=== PATIENT | male | born 1995 | race Hispanic/Latino ===

== ENCOUNTER 2018-03-03 20:23 | Emergency (ER) | payer OTHER ==
[2018-03-03 20:36] VITALS: BP 126/83; PULSE 88; RESP 20; TEMP 99; O2SAT 100
--- NOTE | 2018-03-03 20:44 | ED PDOC ---
HPI: General Adult Time Seen by Provider: 03/03/18 20:34 Chief Complaint (Nursing): Med Refill Chief Complaint (Provider): Med Refill History Per: Patient History/Exam Limitations: no limitations Additional Complaint(s): 22 y/o male presents to the ED for a medication refill. Patient states he is currently on Effexor and took his last dose today. Patient takes one tablet of 75 mg Effexor daily. Patient was unable to make appointment with physician for medication refill this past week. Patient states he is hoping to get an appointment sometime this weekend. Denies suicidal or homicidal ideation at this time. PMD: None Past Medical History Reviewed: Historical Data, Nursing Documentation, Vital Signs Vital Signs: Last Vital Signs Temp 99.0 F 03/03/18 20:34 Pulse 88 03/03/18 20:34 Resp 20 03/03/18 20:34 BP 126/83 03/03/18 20:34 Pulse Ox 100 03/03/18 20:49 - Medical History PMH: Anxiety - Surgical History Surgical History: No Surg Hx - Family History Family History: States: No Known Family Hx - Living Arrangements Living Arrangements: With Family - Social History Current smoker - smoking cessation education provided: No Ex-Smoker (has not smoked in the last 12 months): Yes (quit smoking in June of 2017) Alcohol: Occasional Drugs: Denies, Other (Quit smoking marijuana in October) - Home Medications Home Medications: Ambulatory Orders Medication Instructions Recorded Venlafaxine [Effexor-XR] 75 mg PO DAILY #20 tab 03/03/18 - Allergies Allergies/Adverse Reactions: Allergies Allergy/AdvReac Type Severity Reaction Status Date / Time No Known Allergies Allergy Verified 03/03/18 20:34 Review of Systems ROS Statement: Except As Marked, All Systems Reviewed And Found Negative Psych: Positive for: Anxiety (need refill for effexor), Other (denies suicidal or homicidal ideation) Physical Exam - Reviewed Nursing Documentation Reviewed: Yes Vital Signs Reviewed: Yes - Physical Exam Appears: Positive for: Well, Non-toxic, No Acute Distress Head Exam: Positive for: ATRAUMATIC, NORMOCEPHALIC Skin: Positive for: Normal Color. Negative for: Rash Eye Exam: Positive for: Normal appearance, EOMI, PERRL Extremity: Positive for: Normal ROM. Negative for: Deformity Neurologic/Psych: Positive for: Alert, Oriented (x3). Negative for: Motor/ Sensory Deficits - ECG O2 Sat by Pulse Oximetry: 100 (RA) Pulse Ox Interpretation: Normal Medical Decision Making Medical Decision Making: Time: 2045 Impression: 22 y/o male presents to the ED for medication refill Plan: -- Patient will be discharge with 20 day supply of 75 mg Effexor PO daily. Advised PMD follow up SANDEEP. Scribe Attestation: Documented by Alyson Adkins, acting as a scribe for Jinny Pitts PA-C. Provider Scribe Attestation: All medical record entries made by the Scribe were at my direction and personally dictated by me. I have reviewed the chart and agree that the record accurately reflects my personal performance of the history, physical exam, medical decision making, and the department course for this patient. I have also personally directed, reviewed, and agree with the discharge instructions and disposition. Disposition - Clinical Impression Clinical Impression: Medicine refill - Patient ED Disposition Is Patient to be Admitted: No Counseled Patient/Family Regarding: Need For Followup, Rx Given - Disposition Referrals: [facility] [Outside] Disposition: Routine/Home Disposition Time: 20:59 Condition: STABLE Additional Instructions: Take rx meds as directed. Follow up SANDEEP with primary care doctor. Prescriptions: Venlafaxine [Effexor-XR] 75 mg PO DAILY #20 tab Instructions: Venlafaxine Forms: [employer] (Greenlandic)
== END 2018-03-03 21:06 | disposition home or self-care (01) ==
LOC: H.ER 20:23
DX: Z76.0 Encounter for issue of repeat prescription (principal); F41.9 Anxiety disorder, unspecified

== ENCOUNTER 2018-11-30 15:57 | Emergency (ER) | payer BC, OTHER ==
[2018-11-30 16:23] VITALS: BP 117/66; PULSE 82; RESP 18; TEMP 98.8; O2SAT 99
[2018-11-30] MEDS ORDERED: Venlafaxine 75 mg ER Cap PO STA (16:29)
--- NOTE | 2018-11-30 16:41 | ED PDOC ---
HPI: General Adult Time Seen by Provider: 11/30/18 16:28 Chief Complaint (Nursing): Med Refill Chief Complaint (Provider): Med Refill History Per: Patient History/Exam Limitations: no limitations Onset/Duration Of Symptoms: Days Current Symptoms Are (Timing): Still Present Additional Complaint(s): 23 y/o male with a PMHx of Anxiety requesting a temporary medication refill. Patient reports he was visiting his parent's house in [place], [place] when he accidentally left his Effexor-XR 75 mg PO BID there. Patient states he is unable to get to it until next week and is requesting a temporary refill to last him for this week. Patient reports of taking medication for anxiety. Otherwise, patient offers no complaints at this time and denies suicidal ideation, homicidal ideation and hallucinations. PMD: no provider Past Medical History Reviewed: Historical Data, Nursing Documentation, Vital Signs Vital Signs: Last Vital Signs Temp 98.8 F 11/30/18 16:22 Pulse 82 11/30/18 16:22 Resp 18 11/30/18 16:22 BP 117/66 11/30/18 16:22 Pulse Ox 99 11/30/18 16:22 - Medical History PMH: Anxiety - Surgical History Surgical History: No Surg Hx - Family History Family History: States: Unknown Family Hx - Home Medications Home Medications: Ambulatory Orders Medication Instructions Recorded Venlafaxine [Effexor-XR] 75 mg PO DAILY #20 tab 03/03/18 Venlafaxine [Effexor-XR] 75 mg PO DAILY #7 cer 11/30/18 - Allergies Allergies/Adverse Reactions: Allergies Allergy/AdvReac Type Severity Reaction Status Date / Time No Known Allergies Allergy Verified 03/03/18 20:34 Review of Systems ROS Statement: Except As Marked, All Systems Reviewed And Found Negative Constitutional: Positive for: Other (temporary med refill) Physical Exam - Reviewed Nursing Documentation Reviewed: Yes Vital Signs Reviewed: Yes - Physical Exam Appears: Positive for: No Acute Distress Head Exam: Positive for: ATRAUMATIC Skin: Positive for: Normal Color, Warm, Dry Eye Exam: Positive for: Normal appearance, EOMI, PERRL Cardiovascular/Chest: Positive for: Regular Rate, Rhythm. Negative for: Murmur Respiratory: Positive for: Normal Breath Sounds. Negative for: Respiratory Distress Neurological/Psych: Positive for: Awake, Alert, Oriented (x3), Mood/Affect (calm, cooperative, friendly and happy). Negative for: Motor/Sensory Deficits - ECG O2 Sat by Pulse Oximetry: 99 (RA) Pulse Ox Interpretation: Normal Medical Decision Making Medical Decision Making: Time: 1628 Plan: -- Effexor XR 75 mg PO -- Patient to be given a dose of Effexor in the ER as well as a prescription for one week. ---- Scribe Attestation: Documented by Alyson Adkins, acting as a scribe Nithin Wilson PA-C. Provider Scribe Attestation: All medical record entries made by the Scribe were at my direction and personally dictated by me. I have reviewed the chart and agree that the record accurately reflects my personal performance of the history, physical exam, medical decision making, and the department course for this patient. I have also personally directed, reviewed, and agree with the discharge instructions and disposition. Disposition - Clinical Impression Clinical Impression: Medicine refill - Disposition Referrals: [facility] [Outside] Disposition: Routine/Home Disposition Time: 16:30 Condition: STABLE Additional Instructions: FOLLOW UP WITH YOUR PSYCHIATRIST FOR FURTHER EVALUATION RETURN TO ED IMMEDIATELY IF SYMPTOMS WORSEN TONEY THOMAS, thank you for letting us take care of you today. Your provider was Robert Cody MD and you were treated for [facility] MED REFILL. The emergency medical care you received today was directed at your acute symptoms. If you were prescribed any medication, please fill it and take as directed. It may take several days for your symptoms to resolve. Return to the Emergency Department if your symptoms worsen, do not improve, or if you have any other problems. Please contact your doctor or call one of the physicians/clinics you have been referred to that are listed on the Patient Visit Information form that is included in your discharge packet. Bring any paperwork you were given at discharge with you along with any medications you are taking to your follow up visit. Our treatment cannot replace ongoing medical care by a primary care provider outside of the emergency department. Thank you for allowing the [facility] team to be part of your care today. If you had an X-Ray or CT scan: A Radiologist will review the ED reading if any change in treatment is needed we will contact you. If you had a blood, urine, or wound culture: It will take several days for the results, if any change in treatment is needed we will contact you. If you had an STI test: It will take 48 hours for the results. Please call after 1 week if you have not heard back. Prescriptions: Venlafaxine [Effexor-XR] 75 mg PO DAILY #7 cer Forms: [employer] (Bulgarian) Print Language: VIETNAMESE
== END 2018-11-30 17:10 | disposition home or self-care (01) ==
LOC: H.ER 15:57
DX: Z76.0 Encounter for issue of repeat prescription (principal); F41.9 Anxiety disorder, unspecified